=== PATIENT | female | born 1980 | race Two or more races ===

== ENCOUNTER 2019-06-04 11:42 | Emergency (ER) | payer MEDICAID, OTHER ==
--- NOTE | 2019-06-04 12:12 | EDM.PDOC ---
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 injecting the heroin smoking and snorting the meth Patient stains the outer parts of both her ears have been draining she has been trying to keep them clean with alcohol and salt water but not have any results she has been seen at [place] [facility] for the same thing about 2 weeks ago was given a shot but it did not work her tetanus status is up-to-date within the last 10 years Quality: Reports: Throbbing Severity: Mild Improves with: Reports: None Worsens with: Reports: None Associated Symptoms: Reports: No Other Symptoms ED ROS ENT - Review of Systems Review Of Systems: See Below Constitutional: Reports: No Symptoms. Denies: Fever, Chills, Malaise, Weakness , Fatigue HEENT: Reports: Ear Discharge, Ear Pain, Other (Patient denies any hearing changes hearing loss ringing or roaring). Denies: Dental Pain, Eye Discharge, Eye Pain, Hearing Loss, Nosebleed, Nose Pain, Rhinitis, Sinus Problem, Throat Pain, Throat Swelling Respiratory: Reports: No Symptoms Cardiovascular: Reports: No Symptoms Endocrine: Reports: No Symptoms GI/Abdominal: Reports: No Symptoms : Reports: No Symptoms Musculoskeletal: Reports: No Symptoms Skin: Reports: Pruritis (She states the ears itch constantly and having a lot of dry skin to the area), Rash Neurological: Reports: No Symptoms. Denies: Confusion, Dizziness, Headache, Numbness, Syncope, Tingling, Trouble Speaking, Difficulty Walking, Weakness, Gait Disturbance Psychiatric: Reports: No Symptoms Hematologic/Lymphatic: Reports: No Symptoms Immunologic: Reports: No Symptoms ED EXAM, ENT - Physical Exam Exam: See Below Exam Limited By: No Limitations General Appearance: Alert, WD/WN, No Apparent Distress Eye Exam: Bilateral Eye: EOMI, Normal Inspection, PERRL Ears: Normal Canal, Hearing Grossly Normal, Normal TMs, Other (Exam to bilateral ears there is noted mucopurulent discharge from the upper antif helix / triangular fossa of the ears that is fixated to the area there is no surrounding erythema calor or edema mild tenderness to palpation with retraction no tenderness to palpation over the tragus no mastoid tenderness there is also diffuse crusting and scaling over the helix of the ear and the lobula ). No: Auricular Tenderness, Mastoid Swelling, Mastoid Tenderness, TM Bulging, TM Dullness, TM Erythema, TM Blood, TM Fluid Nose: Normal Inspection, Normal Mucousa. No: Clear Rhinorrhea, Nasal Discharge , Nasal Swelling, Nasal Tenderness Mouth/Throat: Normal Inspection, Normal Gums, Normal Lips, Normal Oropharynx, Normal Teeth. No: Dental Abcess, Dental Pain Head: Atraumatic, Normocephalic Neck: Normal Inspection, Supple, Non-Tender, Full Range of Motion. No: Lymphadenopathy (L) Respiratory/Chest: No Respiratory Distress GI/Abdominal: Normal Bowel Sounds, Soft, Non-Tender, No Organomegaly Back: Full Range of Motion Extremities: Normal Inspection, Normal Range of Motion, Non-Tender, Normal Capillary Refill (No noted evidence of track cordova on extremities) Neurological: Alert, Oriented, CN II-XII Intact, Normal Cognition, Normal Gait, No Motor/Sensory Deficits Skin: Warm, Dry, Intact, Normal Color, No Rash Lymphatic: No Adenopathy Course - Vital Signs Text/Narrative:: Patient was given instructions to stop using alcohol salt water and peroxide to clean the areas to keep them clean with warm soapy water to take antibiotics as directed, follow up with her primary care provider in the next 3-4 days for a follow-up and for possible referral to ENT to return to the emergency room if anything got worse or changes Patient was given a prescription for Augmentin 875 one by mouth every 12 hours 12 days secondary to the patient is allergic to sulfa medication and wound culture was not performed secondary to the patient just finished antibiotics couple days ago from [place] patient was given a good Rx coupon for [facility] for the medication for 15.25 Departure - Departure Time of Disposition: 12:15 Disposition: Home, Self-Care 01 Condition: Good Clinical Impression: External otitis - Discharge Information Referrals: PCP,Not In Area [Primary Care Provider] - Forms: ED Department Discharge - Problem List & Annotations (1) External otitis SNOMED Code(s): 5636204 Code(s): H60.90 - UNSPECIFIED OTITIS EXTERNA, UNSPECIFIED EAR Status: Acute Current Visit: Yes Qualifiers: Otitis externa type: other infective Chronicity: chronic Laterality: bilateral Qualified Code(s): H60.393 - Other infective otitis externa, bilateral
== END 2019-06-04 12:35 | disposition home or self-care (01) ==
LOC: VM.ED 11:42
DX: H60.93 Unspecified otitis externa, bilateral (principal)
CPT/HCPCS: 99283